=== PATIENT | female | born 1965 | race African-American/Black ===

== ENCOUNTER 2016-07-01 12:56 | Emergency (ER) | payer MEDICAID ==
[~2016-07-01] VITALS: Ht 172.7 cm; Wt 144.0 kg
[~2016-07-01 12:56] MED LIST: LORA5TAB8
[2016-07-01 13:10] VITALS: BP 144/91
== END 2016-07-01 17:47 | disposition home or self-care (01) ==
LOC: ER 12:57
DX: L03.113 Cellulitis of right upper limb (principal); B37.9 Candidiasis, unspecified; I10 Essential (primary) hypertension; E11.9 Type 2 diabetes mellitus without complications; Z90.10 Acquired absence of unspecified breast and nipple; Z88.8 Allergy status to other drugs, medicaments and biological substances
CPT/HCPCS: 99283

== ENCOUNTER 2016-07-28 12:54 | Emergency (ER) | payer MEDICAID ==
[~2016-07-28] VITALS: Ht 172.7 cm; Wt 145.0 kg
[~2016-07-28 12:54] MED LIST changes: +TRAM50TA3 PO
[2016-07-28 14:35] VITALS: BP 168/118
== END 2016-07-28 22:13 | disposition left against medical advice (07) ==
LOC: ER 22:04
DX: M79.603 Pain in arm, unspecified (principal); Z53.21 Procedure and treatment not carried out due to patient leaving prior to being seen by health care provider

== ENCOUNTER 2016-12-15 13:57 | Emergency (ER) | payer MEDICAID ==
[~2016-12-15] VITALS: Ht 172.7 cm; Wt 143.0 kg
[2016-12-15 14:27] VITALS: BP 114/94
== END 2016-12-15 18:12 | disposition left against medical advice (07) ==
LOC: ER 14:28
DX: R05 Cough (principal); Z53.21 Procedure and treatment not carried out due to patient leaving prior to being seen by health care provider

== ENCOUNTER 2017-01-06 12:44 | Emergency (ER) | payer MEDICAID ==
[~2017-01-06] VITALS: Ht 172.7 cm; Wt 143.0 kg
[2017-01-06] MEDS ORDERED: KETOROLAC 30MG/ML VIAL IV STA (13:11)
[2017-01-06] MEDS ORDERED: METOCLOPRAMIDE HCL 10MG/2ML VIAL IV ONE (13:15)
[2017-01-06 13:33] LABS: BASOPHILS % 0.7 % (0.0-2.0); EOSINOPHILS % 1.2 % (0.0-5.0); HEMATOCRIT. 46.4 % (36.0-48.0); HEMOGLOBIN. 15.5 g/dL (12.0-16.0); LYMPHOCYTES % 30.9 % (20.0-50.0); MEAN CORPUSCULAR HEMOGLOBIN 27.9 pg (28.0-32.0); MEAN CORPUSCULAR VOLUME 83.5 fL (81.0-99.0); MEAN PLATELET VOLUME 9.3 fl (7.4-10.4); MONOCYTES % 6.6 % (2.0-8.0); NEUTROPHILS % 60.6 % (40.0-76.0); PLATELET 184 x1000/uL (130-400); RED BLOOD CELL COUNT 5.56 mill/uL (4.2-5.4); RED CELL DISTRIBUTION WIDTH 13.6 % (11.6-14.6)
[2017-01-06 13:40] LABS: PROTHROMBIN TIME 10.2 sec (9.4-11.6)
[2017-01-06 13:48] LABS: CARBON DIOXIDE 28 mEq/L (21-32); CHLORIDE 99 mEq/L (98-107)
[2017-01-06 14:24] LABS: GLUCOSE URINE 3+ (NEGATIVE); KETONES URINE NEGATIVE (NEGATIVE); LEUKOCYTE ESTERASE URINE NEGATIVE (NEGATIVE); NITRITE URINE NEGATIVE (NEGATIVE); OCCULT BLOOD URINE NEGATIVE (NEGATIVE); PH URINE 5.5 (4.5-8.0); PROTEIN URINE 3+ (NEGATIVE); SPECIFIC GRAVITY URINE 1.024 (1.005-1.030); UROBILINOGEN URINE 0.2 E.U./dL (0.2-1.0)
[2017-01-06 14:27] LABS: CLARITY URINE HAZY (CLEAR); COLOR URINE YELLOW (YELLOW)
[2017-01-06 15:07] VITALS: BP 126/55
== END 2017-01-06 15:09 | disposition home or self-care (01) ==
LOC: ER 12:53
DX: R10.9 Unspecified abdominal pain (principal); R11.0 Nausea; R51 Headache; F17.200 Nicotine dependence, unspecified, uncomplicated; I10 Essential (primary) hypertension; E11.9 Type 2 diabetes mellitus without complications; Z88.5 Allergy status to narcotic agent
CPT/HCPCS: 36415; 70450; 74176; 80053; 81001; 83690; 85025; 85610; 96374; 96375; 99285; J1885; J2765; Z7610

== ENCOUNTER 2023-03-20 18:52 | Emergency (ER) | payer MEDICAID ==
[~2023-03-20] VITALS: Ht 177.8 cm; Wt 120.0 kg
[~2023-03-20 18:52] MED LIST changes: +DAPA10TA PO; +HYDR-4001 PO; +HYDR12.54 PO; +INSNPH SUBCUT; -LORA5TAB8; +METO-539 PO
[2023-03-20 18:56] VITALS: BP 149/99; PULSE 90; RESP 16; TEMP 99.2; O2SAT 100
== END 2023-03-20 21:00 | disposition left against medical advice (07) ==
LOC: ER 18:52
DX: R10.9 Unspecified abdominal pain (principal); E11.9 Type 2 diabetes mellitus without complications; I12.9 Hypertensive chronic kidney disease with stage 1 through stage 4 chronic kidney disease, or unspecified chronic kidney disease; E11.22 Type 2 diabetes mellitus with diabetic chronic kidney disease; N18.9 Chronic kidney disease, unspecified; Z53.21 Procedure and treatment not carried out due to patient leaving prior to being seen by health care provider; Z98.890 Other specified postprocedural states; Z85.9 Personal history of malignant neoplasm, unspecified; Z90.13 Acquired absence of bilateral breasts and nipples; Z88.8 Allergy status to other drugs, medicaments and biological substances
CPT/HCPCS: 99281